=== PATIENT | male | born 1965 | race Caucasian/White ===

== ENCOUNTER 2022-11-29 08:50 | Emergency (ER) | payer BC, SELFPAY ==
[2022-11-29 08:58] VITALS: BP 128/80; PULSE 51; RESP 20; TEMP 37.1; O2SAT 100; BMI 24.4
[2022-11-29] MEDS: MORPHINE SULFATE 2 MG/ML SYRINGE 4 MG IV (09:45)
[2022-11-29] MEDS: ONDANSETRON PF 4 MG/2 ML VIAL IV (09:45)
[2022-11-29 09:47] LABS: Basophils Percent Auto 0.3 % (0.2-2.0); Eosinophils Percent Auto 0.4 % (0.9-7.0); Hematocrit 45.9 % (42.0-54.0); Hemoglobin 15.9 g/dL (14.0-18.0); Immature Granulocytes Abs Auto 0.03 10^3/uL (0.00-0.03); Immature Granulocytes Pct Auto 0.3 % (0.0-0.5); Lymphocytes Absolute Auto 1.1 10^3/uL (1.2-3.8); Lymphocytes Percent Auto 11.5 % (20.5-60.0); Mean Corpuscular HGB Conc 34.6 g/dL (29.9-35.2); Mean Corpuscular Hemoglobin 31.2 pg (25.9-34.0); Mean Corpuscular Volume 90.2 fL (80.0-94.0); Mean Platelet Volume 9.5 fL (9.5-13.5); Monocytes Absolute Auto 0.5 10^3/uL (0.3-0.8); Monocytes Percent Auto 5.1 % (1.7-12.0); Neutrophils Absolute Auto 7.8 10^3/uL (1.4-6.5); Neutrophils Percent Auto 82.4 % (43.0-75.0); Platelet Count 275 10^3/uL (150-450); Red Blood Count 5.09 10^6/uL (4.70-6.10); Red Cell Distribution Width 12.4 % (11.0-15.0); White Blood Count 9.5 10^3/uL (4.0-11.0)
[2022-11-29] MEDS: KETOROLAC TROMETHAMINE 30 MG/ML VIAL 15 MG IVP (09:48)
[2022-11-29 09:53] LABS: Bilirubin Urine NEGATIVE (NEGATIVE); Blood Urine LARGE (NEGATIVE); Clarity Urine CLEAR (CLEAR); Color Urine YELLOW (YELLOW); Glucose Urine UA NEGATIVE (NEGATIVE); Ketones Urine 40 mg/dL (NEGATIVE); Leukocyte Esterase Urine NEGATIVE (NEGATIVE); Nitrite Urine NEGATIVE (NEGATIVE); Protein Urine TRACE mg/dL (NEG/TRACE); Specific Gravity Urine >=1.030 (1.005-1.025); Urobilinogen Urine 0.2 EU/dL (0.2-1.0); pH Urine 5.5 (5.0-9.0)
--- NOTE | 2022-11-29 09:58 | CT_ITS ---
[address] [address] Patient Name: KAYLEN QUILES MRN: [id number] date: 1965 Sex: M Assigned Patient Location: ER Current Patient Location: Accession/Order Number: [id number] Exam Date: 11/29/2022 09:46 Report Date: 11/29/2022 10:21 At the request of: JERALD OLIVARES Procedure: CT abdomen pelvis wo con EXAMINATION: CT abdomen pelvis wo con HISTORY: kidney stone [; acute right flank pain COMPARISON: No relevant comparison available. TECHNIQUE: Axial, Coronal, and Sagittal images were obtained without and/or with IV contrast as indicated by examination type. Dose reduction techniques were achieved by using automated exposure control and/or adjustment of mA and/or kV according to patient size and/or use of iterative reconstruction technique. FINDINGS: LUNG BASES: No visible pulmonary or pleural disease. LIVER: No enlargement, atrophy, suspicious density, or significant focal lesion. BILIARY: No dilatation or calcification. PANCREAS: No lesion, fluid collection, or abnormal duct dilatation. SPLEEN: No enlargement or focal lesion. ADRENALS: No mass or enlargement. KIDNEYS: Mild right hydronephrosis and hydroureter secondary to a partially obstructing 3 mm stone within the distal ureter, 2 cm from the ureterovesical junction. 1 mm nonobstructing stone within left kidney. BOWEL/MESENTERY: No visible mass, obstruction, or bowel wall thickening. AORTA/VASCULAR: No aneurysm or dissection. RETROPERITONEUM: No mass or adenopathy. LYMPH NODES: No adenopathy. URINARY BLADDER: No visible focal wall thickening, lesion, or calculus. PELVIC ORGANS: No visible mass. Pelvic organs appropriate for patient age. ABDOMINAL WALL: No mass or hernia. BONES: No bony lesion or fracture. OTHER: Negative. CT/CT abdomen pelvis wo con IMPRESSION: 1.Mild right hydronephrosis and hydroureter secondary to a partially obstructing 3 mm stone within the distal ureter. Electronically authenticated by: KHARI GAY Date: 11/29/2022 10:21
[2022-11-29 10:01] LABS: Bacteria Urine NONE SEEN #/HPF (NONE SEEN); Cast Seen? NONE SEEN #/LPF (NONE SEEN); Crystals Seen? None Seen #/HPF (None Seen); Mucus Urine SMALL (NONE SEEN); Squamous Epithelial Cell Urine FEW #/LPF (NONE/RARE); Urine Culture Indicated NO; WBC Urine NONE SEEN #/HPF (NONE SEEN)
[2022-11-29] MEDS: 0.9 % SODIUM CHLORIDE 1,000 ML 1000 ML IV (10:04)
[2022-11-29 10:07] LABS: Alanine Aminotransferase 32 U/L (16-63); Albumin Globulin Ratio 1.7; Albumin Level 4.7 g/dL (3.4-5.0); Alkaline Phosphatase 66 U/L (46-116); Anion Gap 10.4; Aspartate Amino Transferase 20 U/L (15-37); Bilirubin Total 1.5 mg/dL (0.2-1.0); Calcium 9.1 mg/dL (8.5-10.1); Carbon Dioxide 30.5 mmol/L (21.0-32.0); Chloride 105 mmol/L (98-107); Estimated GFR (African America >60 (>=60); Estimated GFR (Non-African Ame >60 (>=60); Globulin 2.7 g/dL; Glucose 115 mg/dL (74-106); Potassium 3.9 mmol/L (3.5-5.1); Sodium 142 mmol/L (136-145); Total Protein 7.4 g/dL (6.4-8.2)
--- NOTE | 2022-11-29 11:19 | ED.GENADUL1 ---
HPI - General Adult General Chief complaint: Back Pain/Injury Stated complaint: KIDNEY STONES Time Seen by Provider: 11/29/22 09:09 Source: patient Mode of arrival: walk-in Limitations: no limitations History of Present Illness HPI narrative: Patient is a 57-year-old male who is complaining of right lower back pain that radiates into his right testicles a started yesterday evening around 9 PM. Patient did have one kidney stone previously, he passed it on his own. This occurred back in approximately 2008. Patient has no chest pain or shortness of breath. No dull pain, mild nausea with the pain, no vomiting or diarrhea. Patient is a auto transmission mechanic, he self-employed. Patient is a no heavy lifting, twisting or turning. Patient has no rash. No other acute complaints at this time. Patient has no urinary frequency, urgency or burning. Patient has had inguinal hernia and a repair of a long time ago. Patient has no inguinal pain or testicular. . All systems are negative except as noted/marked. All systems reviewed and otherwise negative. . Nurses note and vital signs reviewed and patient is not hypoxic. General: The patient appears well and in no apparent distress. Patient is resting comfortably on cart. Patient is not toxic, lethargic, or listless Skin: Warm, dry, no pallor noted. There is no rash noted. No petechiae, purpura. Head: Normocephalic, atraumatic Eye: Normal conjunctiva, no drainage, EOMI. PERRL Ears, Nose, Mouth, and Throat: oral mucosa is moist. Cardiovascular: Regular Rate and Rhythm, no murmur, gallop, rub Respiratory: Patient is in no distress, no accessory muscle use, lungs are clear to auscultation, no wheezing, rales or rhonchi Back: non-tender, Moderate right CVA tenderness to palpation, no left CVA tenderness to palpation, No CT LS midline pain GI: soft, no tenderness to palpation, no masses appreciated. No rebound, guarding, or rigidity noted. No flank pain bilateral, No distention Musculoskeletal: Patient has full range of motion of all of the extremities, no motor, sensory, or focal neurological deficits Neurological: A&O x3, normal speech Psychiatric: Cooperative Related Data Previous Rx's Medication Instructions Recorded ketorolac 10 mg tablet 10 mg PO Q8H PRN pain 1 day #10 11/29/22 tabs ondansetron 4 mg disintegrating 4 mg PO Q4H PRN nausea and 11/29/22 tablet vomiting 3 days #6 tabs oxycodone-acetaminophen 5 mg-325 1 tab PO Q4H PRN pain #10 tabs 11/29/22 mg tablet (Percocet) tamsulosin 0.4 mg capsule (Flomax) 0.4 mg PO DAILY 7 days #7 caps 11/29/22 Allergies Allergy/AdvReac Type Severity Reaction Status Date / Time No Known Drug Allergies Allergy Verified 11/29/22 09:01 Exam Constitutional Vital Signs, click to edit/add: Last Vital Signs Temp 98.7 F 11/29/22 08:58 Pulse 51 L 11/29/22 08:58 Resp 20 11/29/22 08:58 BP 128/80 11/29/22 08:58 Pulse Ox 100 11/29/22 08:58 O2 Del Method Room Air 11/29/22 08:58 Course Vital Signs Vital signs: Vital Signs Temperature 98.7 F 11/29/22 08:58 Pulse Rate 51 L 11/29/22 08:58 Respiratory Rate 20 11/29/22 08:58 Blood Pressure 128/80 11/29/22 08:58 Pulse Oximetry 100 11/29/22 08:58 Oxygen Delivery Method Room Air 11/29/22 08:58 Temperature 98.7 F 11/29/22 08:58 Pulse Rate 51 L 11/29/22 08:58 Respiratory Rate 20 11/29/22 08:58 Blood Pressure 128/80 11/29/22 08:58 Pulse Oximetry 100 11/29/22 08:58 Oxygen Delivery Method Room Air 11/29/22 08:58 Medical Decision Making MDM Narrative Medical decision making narrative: Patient was initially given IV fluids, Toradol, morphine and Zofran. Patient is evidence of a 3 mm stone with mild hydronephrosis and mild hydroureter. Patient has a additional 1 mm stone in the left kidney. Patient was given a copy of his CAT scan. Patient is aware the kidney stone. Patient was given urine strainers. Patient had a return of pain at discharge, he was given a Percocet. Patient was sent home with a prescription for Zofran, Flomax, Toradol, Percocet. Patient will follow-up with Dr. Ventura for urology. Education done at bedside increasing fluids at home. No questions at discharge Lab Data Labs: Lab Results 11/29/22 11/29/22 Range/Units 09:02 09:34 WBC 9.5 (4.0-11.0) 10^3/uL RBC 5.09 (4.70-6.10) 10^6/uL Hgb 15.9 (14.0-18.0) g/dL Hct 45.9 (42.0-54.0) % MCV 90.2 (80.0-94.0) fL MCH 31.2 (25.9-34.0) pg MCHC 34.6 (29.9-35.2) g/dL RDW 12.4 (11.0-15.0) % Plt Count 275 (150-450) 10^3/uL MPV 9.5 (9.5-13.5) fL Neut % (Auto) 82.4 H (43.0-75.0) % Lymph % (Auto) 11.5 L (20.5-60.0) % Monroe % (Auto) 5.1 (1.7-12.0) % Eos % (Auto) 0.4 L (0.9-7.0) % Baso % (Auto) 0.3 (0.2-2.0) % Neut # (Auto) 7.8 H (1.4-6.5) 10^3/uL Lymph # (Auto) 1.1 L (1.2-3.8) 10^3/uL Monroe # (Auto) 0.5 (0.3-0.8) 10^3/uL Eos # (Auto) 0.0 (0.0-0.7) 10^3/uL Baso # (Auto) 0.0 (0.0-0.1) 10^3/uL Abs Immat Gran (auto) 0.03 (0.00-0.03) 10^3/uL Imm/Tot Granulo (auto) 0.3 (0.0-0.5) % Sodium 142 (136-145) mmol/L Potassium 3.9 (3.5-5.1) mmol/L Chloride 105 (98-107) mmol/L Carbon Dioxide 30.5 (21.0-32.0) mmol/L Anion Gap 10.4 BUN 24.0 H (7.0-18.0) mg/dL Creatinine 1.09 (0.70-1.30) mg/dL Est GFR ( Amer) >60 (>=60) Est GFR (Non-Af Amer) >60 (>=60) BUN/Creatinine Ratio 22.0 Glucose 115 H (74-106) mg/dL Calcium 9.1 (8.5-10.1) mg/dL Total Bilirubin 1.5 H (0.2-1.0) mg/dL AST 20 (15-37) U/L ALT 32 (16-63) U/L Alkaline Phosphatase 66 (46-116) U/L Total Protein 7.4 (6.4-8.2) g/dL Albumin 4.7 (3.4-5.0) g/dL Globulin 2.7 g/dL Albumin/Globulin Ratio 1.7 Lipase 100.0 (73.0-393.0) U/L Urine Color Yellow (YELLOW) Urine Clarity Clear (CLEAR) Urine pH 5.5 (5.0-9.0) Ur Specific Speer >=1.030 A (1.005-1.025) Urine Protein Trace (NEG/TRACE) mg/dL Urine Glucose (UA) Negative (NEGATIVE) mg/dL Urine Ketones 40 A (NEGATIVE) mg/dL Urine Occult Blood Large A (NEGATIVE) Urine Nitrite Negative (NEGATIVE) Urine Bilirubin Negative (NEGATIVE) Urine Urobilinogen 0.2 (0.2-1.0) EU/dL Ur Leukocyte Esterase Negative (NEGATIVE) Urine RBC 10-20 A (0-2) #/HPF Urine WBC None seen (NONE SEEN) #/HPF Ur Squamous Epith Cells Few A (NONE/RARE) #/LPF Urine Crystals None seen (None Seen) #/HPF Urine Bacteria None seen (NONE SEEN) #/HPF Urine Casts None seen (NONE SEEN) #/LPF Urine Mucus Small A (NONE SEEN) Ur Culture Indicated? No Discharge Plan Discharge Chief Complaint: Back Pain/Injury Clinical Impression: Calculus of right kidney Patient Disposition: Home, Self-Care Condition: Fair Prescriptions / Home Meds: New ondansetron 4 mg tablet,disintegrating 4 mg PO Q4H PRN (Reason: nausea and vomiting) 3 Days Qty: 6 0RF oxycodone-acetaminophen [Percocet] 5-325 mg tablet 1 tab PO Q4H PRN (Reason: pain) Qty: 10 0RF tamsulosin [Flomax] 0.4 mg capsule 0.4 mg PO DAILY 7 Days Qty: 7 0RF ketorolac 10 mg tablet 10 mg PO Q8H PRN (Reason: pain) 1 Days Qty: 10 0RF Instructions: Kidney Stones (ED), How to Strain Your Urine (ED), Hydronephrosis (ED) Additional Instructions: Continue to increase fluids, drink 1 gallon of fluid a day. Strain your urine. Did not work or drive with Percocet. Do not take Percocet or Tylenol together, you could actually take too much Tylenol together. Follow-up with urologist. A copy of her CAT scan report was given 2. Stand Alone Forms: Portal Instructions Referrals: Ney Ventura MD [Physician] - 1 week CÉSAR BRIONES [Primary Care Provider] - 1 week
== END 2022-11-29 11:25 | disposition home or self-care (01) ==
PROVIDERS: Emergency Provider Emergency Medicine; Family Provider Family Medicine; PCP Internal Medicine
DX: N13.2 Hydronephrosis with renal and ureteral calculous obstruction (principal); Z87.442 Personal history of urinary calculi
CPT/HCPCS: 36415; 74176; 80053; 81001; 83690; 85025; 96374; 96375; 99284